=== PATIENT | female | born 1935 | race Caucasian/White ===

== ENCOUNTER 2019-02-12 08:34 | Day surgery (SDC) | payer MEDICARE ==
[2019-02-07 13:30] VITALS: BP 132/59
[2019-02-07 14:00] LABS: BASOPHILS % (AUTO) 0.5 % (0.0-5.0); EOSINOPHILS % (AUTO) 2.1 % (0.0-8.0); HEMATOCRIT 37.6 % (36-48); LYMPHOCYTES % (AUTO) 15.9 % (21.0-51.0); MEAN CORPUSCULAR HEMOGLOBIN 28.1 pg (27.0-33.0); MEAN CORPUSCULAR HGB CONC 33.3 g/dL (32.0-36.0); MEAN CORPUSCULAR VOLUME 84.4 fL (79-99); MONOCYTES % (AUTO) 6.6 % (3.0-13.0); NEUTROPHILS % (AUTO) 74.9 % (40.0-77.0); NUCLEATED RED BLOOD CELLS 0.1 % (0.0-0.19); PLATELET COUNT (AUTO) 176 K/uL (130-400); RED BLOOD CELL COUNT(AUTO) 4.45 MIL/uL (4.00-5.50); RED CELL DISTRIBUTION WIDTH 13.2 % (11.0-15.5); WHITE BLOOD COUNT (AUTO) 6.4 K/uL (4.8-10.8)
[2019-02-07 14:07] LABS: CREATININE 0.9 mg/dL (0.5-1.5); POTASSIUM 4.1 mmol/L (3.5-5.1)
[2019-02-07 14:10] LABS: PARTIAL THROMBOPLASTIN TIME 29.5 SEC (26.3-35.5); PROTHROMBIN TIME 10.5 SEC (9.6-11.6)
[2019-02-12] VITALS (11 sets, daily range): BP systolic 128–161; BP diastolic 61–90
[~2019-02-12] VITALS: Ht 167.6 cm; Wt 87.5 kg
[~2019-02-12 08:34] MED LIST: AEC81 PO; ATOR10 PO; BISO1TAB99 PO; FLUT16H NASAL; MULT-40 PO; NAPR220T57 PO; SERT100T12 PO; [UNRECOGNIZED DRUG - CODE] TP
[2019-02-12] MEDS ORDERED: SODIUM CHLORIDE 0.9% 1000ML 1,000 ML IV ONE (08:52)
[2019-02-12 11:33] LABS: APPEARANCE,URINE Cloudy (CLEAR); BILIRUBIN,URINE Negative (NEGATIVE); COLOR,URINE Yellow (YELLOW); GLUCOSE, URINE (UA) Negative (NEGATIVE); KETONES,URINE Negative (NEGATIVE); LEUKOCYTE ESTERASE ,URINE Large (NEGATIVE); NITRATE,URINE Negative (NEGATIVE); OCCULT BLOOD,URINE Negative (NEGATIVE); PH,URINE 6.5 (5.0-8.0); PROTEIN,URINE Negative (NEGATIVE); UROBILINOGEN,URINE 0.2 mg/dL (0.2-1.0)
[2019-02-12 12:05] LABS: RBC,URINE 0-1 /HPF (0-1)
[2019-02-12 12:10] LABS: BACTERIA,URINE Moderate /HPF (None Seen)
[2019-02-12] MEDS ORDERED: ACETAMINOPHEN 325 MG TAB ONE ×2 (13:23→15:13)
[2019-02-12] MEDS ORDERED: IOHEXOL 350 MG/ML 100ML INFUS..BTL IV ONE (15:51)
[2019-02-12] MEDS ORDERED: IOHEXOL-350 50ML VIAL IV ONE (15:51)
[2019-02-12] MEDS ORDERED: SODIUM BICARB 50MEQ 50ML VIAL ONE (15:51)
[2019-02-12] MEDS ORDERED: HEPARIN SODIUM 1000UNIT/ML 10ML VIAL ONE (15:51)
[2019-02-12] MEDS ORDERED: MEPERIDINE-PF 25 MG/ML SYG ONE (15:51)
[2019-02-12] MEDS ORDERED: MIDAZOLAM HCL 1 MG/ML 2ML VIAL ONE (15:51)
[2019-02-12] MEDS ORDERED: LIDOCAINE HCL 2% 20ML ONE (15:51)
[2019-02-12] MEDS ORDERED: NITROGLYCERIN 5 MG/ML 10 ML VIAL IV ONE (15:51)
[2019-02-12] MEDS ORDERED: SODIUM CHLORIDE 0.9% 1000ML 1,000 ML IV SCH (16:53)
[2019-02-12] MEDS ORDERED: GLUCAGON 1MG KIT 1 MG ML IM PRN (17:00)
[2019-02-12] MEDS ORDERED: ACETAMINOPHEN-CODEINE 300/30MG TAB PO PRN (17:00)
[2019-02-12] MEDS ORDERED: DEXTROSE 50%-WATER 50 ML DISP.SYRIN IV PRN (17:00)
[2019-02-12] MEDS ORDERED: INSULIN HUMULIN R 100 UNIT/ML 3ML SQ SCH (21:00)
== END 2019-02-12 21:53 | disposition home or self-care (01) ==
LOC: DAH 08:34
PROVIDERS: ATTEND Internal Medicine Cardiovascular Disease
DX: I25.10 Atherosclerotic heart disease of native coronary artery without angina pectoris (principal); I49.3 Ventricular premature depolarization; I10 Essential (primary) hypertension; E78.5 Hyperlipidemia, unspecified; Z88.0 Allergy status to penicillin; Z88.8 Allergy status to other drugs, medicaments and biological substances; Z91.040 Latex allergy status; Z79.82 Long term (current) use of aspirin; Z79.01 Long term (current) use of anticoagulants; Z79.899 Other long term (current) drug therapy
CPT/HCPCS: 36415; 71045; 80048; 81001; 82948 ×2; 85025; 85610; 85730; 93005; 93458; A4215; A4216; A4221; A4222; A4223 ×3; A4606; A4663; C1760; C1894; J1644; J2175; J2250; J3490 ×3; J7030; Q9965; Q9967 ×2; 99156; 99157

== ENCOUNTER 2019-09-12 07:32 | Day surgery (SDC) | payer MEDICARE ==
[~2019-09-12] VITALS: Ht 167.6 cm; Wt 84.2 kg
[2019-09-12 07:50] VITALS: BP 140/69
[2019-09-12 08:05] LABS: BASOPHILS % (AUTO) 1.1 % (0.0-5.0); EOSINOPHILS % (AUTO) 2.7 % (0.0-8.0); HEMATOCRIT 38.1 % (36-48); LYMPHOCYTES % (AUTO) 19.1 % (21.0-51.0); MEAN CORPUSCULAR HGB CONC 33.1 g/dL (32.0-36.0); MEAN CORPUSCULAR VOLUME 84.7 fL (79-99); MONOCYTES % (AUTO) 6.8 % (3.0-13.0); NEUTROPHILS % (AUTO) 69.8 % (40.0-77.0); PLATELET COUNT (AUTO) 181 K/uL (130-400); RED CELL DISTRIBUTION WIDTH 12.9 % (11.0-15.5); WHITE BLOOD COUNT (AUTO) 6.7 K/uL (4.8-10.8)
[2019-09-12 08:13] LABS: CREATININE 1.1 mg/dL (0.5-1.5); POTASSIUM 3.8 mmol/L (3.5-5.1)
[2019-09-12] MEDS ORDERED: SODIUM CHLORIDE 0.9% 1000ML 1,000 ML IV ONE (08:15)
[2019-09-12 08:20] LABS: INR 0.94 (0.85-1.15); PARTIAL THROMBOPLASTIN TIME 29.3 SEC (26.3-35.5); PROTHROMBIN TIME 10.2 SEC (9.6-11.6)
[2019-09-12] MEDS ORDERED: AEC81 PO (10:26)
[2019-09-12] MEDS ORDERED: VERA180T13 PO (10:26)
[2019-09-12] MEDS ORDERED: DRON400T2 PO (10:26)
[2019-09-12] MEDS ORDERED: TRAZ-185 PO (10:26)
[2019-09-12] MEDS ORDERED: HEPARIN SODIUM 1000UNIT/ML 10ML VIAL ONE (11:51)
[2019-09-12] MEDS ORDERED: LIDOCAINE HCL 2% 20ML ONE (11:51)
[2019-09-12] MEDS ORDERED: MIDAZOLAM HCL 1 MG/ML 2ML VIAL ONE (11:56)
[2019-09-12] MEDS ORDERED: MEPERIDINE-PF 25 MG/ML SYG ONE (11:57)
[2019-09-12 14:33] VITALS: BP 143/82
--- NOTE | 2019-09-12 14:33 | NUR ---
ASSESSMENT PT HERE FROM PROCEDURE. PROCEDURE NOT DONE DUE TO EQUIPMENT FAILURE. DR. WALLACE OFFICE WILL CALL PT TO RESCHEDULE. PT VERBALIZED UNDERSTANDING
--- NOTE | 2019-09-12 15:30 | NUR ---
DISCHARGE PT DISCHARGED TO HOME. DENIES ANY PAIN.
== END 2019-09-12 15:35 | disposition home or self-care (01) ==
LOC: CLH 07:32 → DAH 07:32 → CLH 15:35
PROVIDERS: ATTEND Internal Medicine Cardiovascular Disease
DX: I49.3 Ventricular premature depolarization (principal); Z53.8 Procedure and treatment not carried out for other reasons; I10 Essential (primary) hypertension; E78.5 Hyperlipidemia, unspecified; Z88.0 Allergy status to penicillin; Z91.040 Latex allergy status; Z79.01 Long term (current) use of anticoagulants; Z79.899 Other long term (current) drug therapy; Z88.8 Allergy status to other drugs, medicaments and biological substances; Z72.89 Other problems related to lifestyle; Z87.891 Personal history of nicotine dependence; F32.9 Major depressive disorder, single episode, unspecified; Z82.49 Family history of ischemic heart disease and other diseases of the circulatory system; Z83.3 Family history of diabetes mellitus
CPT/HCPCS: 36415; 80048; 82948; 85025; 85610; 85730; A4215; A4216; A4221; A4222; A4223 ×3; A4606; A4663; J1644 ×2; J2175; J2250; J3490; J7030

== ENCOUNTER 2020-01-09 06:05 | Observation (INO) | payer MEDICARE ==
[2020-01-07 12:09] LABS: BASOPHILS % (AUTO) 0.4 % (0.0-5.0); EOSINOPHILS % (AUTO) 2.2 % (0.0-8.0); HEMATOCRIT 38.7 % (36-48); LYMPHOCYTES % (AUTO) 18.5 % (21.0-51.0); MEAN CORPUSCULAR HEMOGLOBIN 28.2 pg (27.0-33.0); MEAN CORPUSCULAR HGB CONC 32.3 g/dL (32.0-36.0); MEAN CORPUSCULAR VOLUME 87.2 fL (79-99); MONOCYTES % (AUTO) 7.2 % (3.0-13.0); NEUTROPHILS % (AUTO) 71.4 % (40.0-77.0); PLATELET COUNT (AUTO) 184 K/uL (130-400); RED BLOOD CELL COUNT(AUTO) 4.44 MIL/uL (4.00-5.50); RED CELL DISTRIBUTION WIDTH 12.9 % (11.0-15.5); WHITE BLOOD COUNT (AUTO) 6.8 K/uL (4.8-10.8)
[2020-01-07 12:32] LABS: INR 0.97 (0.85-1.15); PARTIAL THROMBOPLASTIN TIME 28.6 SEC (26.3-35.5); PROTHROMBIN TIME 10.5 SEC (9.6-11.6)
[2020-01-07 12:36] LABS: POTASSIUM 4.1 mmol/L (3.5-5.1)
[2020-01-08 10:08] VITALS: BP 158/92
[~2020-01-09] VITALS: Ht 170.2 cm; Wt 90.7 kg
[2020-01-09] VITALS (12 sets, daily range): BP systolic 123–163; BP diastolic 58–87
[~2020-01-09 06:05] MED LIST changes: +DRON400T2 PO; -FLUT16H NASAL; -MULT-40 PO; -NAPR220T57 PO; +TRAZ-185 PO; -[UNRECOGNIZED DRUG - CODE] TP
[2020-01-09] MEDS ORDERED: SODIUM CHLORIDE 0.9% 1000ML 1,000 ML IV ONE (06:07)
--- NOTE | 2020-01-09 07:35 | NUR ---
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 no distress noted.
[2020-01-09] MEDS ORDERED: HEPARIN SODIUM 1000UNIT/ML 10ML VIAL ONE (07:52)
[2020-01-09] MEDS ORDERED: LIDOCAINE HCL 2% 20ML ONE (07:52)
[2020-01-09] MEDS ORDERED: MEPERIDINE-PF 25 MG/ML SYG ONE ×2 (08:04→09:38)
[2020-01-09] MEDS ORDERED: MIDAZOLAM HCL 1 MG/ML 2ML VIAL ONE ×2 (08:04→09:38)
[2020-01-09] MEDS ORDERED: IOHEXOL-350 50ML VIAL IV ONE (09:23)
[2020-01-09] MEDS ORDERED: ISOPROTERENOL HCL 0.2 MG/ML AMP/VIAL/BAG ONE (10:49)
[2020-01-09] MEDS ORDERED: PROTAMINE SULFATE 10 MG/ML 25ML VIAL IV ONE (11:14)
[2020-01-09] MEDS ORDERED: TRAZODONE HCL 50 MG TAB PO PRN (11:45)
[2020-01-09] MEDS ORDERED: ACETAMINOPHEN-CODEINE 300/30MG TAB PO PRN (11:45)
[2020-01-09] MEDS: SERTRALINE HCL 50 MG TABLET PO SCH (11:49)
--- NOTE | 2020-01-09 12:25 | NUR ---
POST RECEIVED PT BACK FROM [facility] S/P PVC ABLATION , ANGIOSEAL CLOSURE DRESSING TO LEFT GROIN. RIGHT GROIN WITH D STAT . PT AWAKE AND ALERT IN BED, NO DISTRESS NOTED, PT DENIED ANY PAIN OR DISCOMFORTS . PLAN OF CARE DISCUSS WITH PATIENT . CALL LIGHT WITHIN REACH . PT PENDING ADMISSION BED
[2020-01-09] MEDS: ACETAMINOPHEN-CODEINE 300/30MG TAB PO PRN (15:22)
--- NOTE | 2020-01-09 15:37 | NUR ---
REPORT REPORT GIVEN TO IVANNA CARABALLO , PT BEING TRANSFERED TO ROOM 411.
--- NOTE | 2020-01-09 15:55 | NUR ---
ADMISSION PT RECEIVED FROM DAY PATIENT; S/P CARDIAC ABLATION. PT AWAKE, ALERT, AND ORIENTED. ORIENTED PT TO ROOM AND CALL LIGHT. DENIES CHEST PAIN, DENIES SOB OR LABORED RESPIRATIONS. BILATERAL GROIN SITES INTACT, NO DRAINAGE OR HEMATOMA, PEDAL PULSES PALPABLE BILATERALLY. PT REMINDED OF STRICT BEDREST UNTIL 1800. PT RSR 60'S. CALL LIGHT WITHIN REACH.
--- NOTE | 2020-01-09 16:15 | NUR ---
POST EP AWAKE AND ORIENTED, DENIES CHEST PAIN OR DISCOMFORT, TELEMETRY MONITORING. BILATERAL GROIN INTACT, NO DRAINAGE, NO HEMATOMA, BILATERAL PEDAL PULSES PALPABLE. CONTINUES ON BEDREST. CALL LIGHT WITHIN REACH.
--- NOTE | 2020-01-09 16:45 | NUR ---
PT AWAKE AND ALERT, DENIES CHEST PAIN, BILATERAL GROIN INTACT, NO DRAINAGE OR HEMATOMA, BILATERAL PEDAL PULSES PALPABLE. DR AHN AWARE OF PT ROOM #.
--- NOTE | 2020-01-09 17:30 | NUR ---
GROIN AWAKE AND ORIENTED , DENIES CHEST PAIN, TELEMETRY MONITORING. BILATERAL GROIN INTACT, NO DRAINAGE OR HEMATOMA, PEDAL PULSES PALPABLE. CALL LIGHT WITHIN REACH
--- NOTE | 2020-01-09 18:30 | NUR ---
BEDREST PT AWAKE AND ORIENTED, DENIES CHEST PAIN. BILATERAL GROIN INTACT, NO DRAINAGE OR HEMATOMA. OOB WITH ASSISTANCE, TOLERATED WELL.
--- NOTE | 2020-01-09 19:00 | NUR ---
AWAKE AND ORIENTED, DENIES DISCOMFORT, NO BLEEDING OR HEMATOMA TO BILATERAL GROIN. TELEMETRY MONITORING. CALL LIGHT WITHIN REACH.
[2020-01-09] MEDS ORDERED: ATORVASTATIN CALCIUM 10 MG TABLET PO SCH (21:00)
[2020-01-10 03:00] VITALS: BP 163/71
[2020-01-10] MEDS: ACETAMINOPHEN-CODEINE 300/30MG TAB PO PRN (03:26)
[2020-01-10 08:00] VITALS: BP 135/51
[2020-01-10] MEDS: SERTRALINE HCL 50 MG TABLET PO SCH (08:52)
[2020-01-10] MEDS ORDERED: ASPIRIN 81 MG EC TAB PO SCH (09:00)
[2020-01-10] MEDS ORDERED: HCTZ PO SCH (09:00)
[2020-01-10] MEDS ORDERED: BISOPROLOL FUMARATE PO SCH (09:00)
[2020-01-10] MEDS ORDERED: PHARMACY COMMUNICATION MISC SCH (09:30)
[2020-01-10] MEDS ORDERED: HYDROCHLOROTHIAZIDE 25 MG TABLET PO SCH (10:47)
[2020-01-10] MEDS ORDERED: METOPROLOL SUCCINATE 50 MG TAB.SR.24H PO SCH (10:47)
--- NOTE | 2020-01-10 11:20 | NUR ---
BROWNING LETTER PATIENT GIVEN BROWNING LETTER, VERBALIZED UNDERSTANDING. FORMS SIGNED, COPY GIVEN TO PATIENT.
[2020-01-10 11:44] VITALS: BP 149/59
--- NOTE | 2020-01-10 14:16 | NUR ---
DISCHARGE HOME PT WAS DISCHARGED HOME AT 1400. PT VERBALIZES UNDERSTANDING OF DISCHARGE INSTRUCTIONS.
== END 2020-01-10 14:00 | disposition home or self-care (01) ==
LOC: DAH 06:05 → DAHIP 06:06 → DAH 06:06 → 4BH 15:58
PROVIDERS: ADMIT Internal Medicine; ATTEND Internal Medicine
DX: I49.3 Ventricular premature depolarization (principal); I10 Essential (primary) hypertension; E78.5 Hyperlipidemia, unspecified; Z87.891 Personal history of nicotine dependence; Z79.82 Long term (current) use of aspirin; Z79.899 Other long term (current) drug therapy; Z88.0 Allergy status to penicillin; Z91.040 Latex allergy status; Z88.8 Allergy status to other drugs, medicaments and biological substances
CPT/HCPCS: 36415; 80048; 82948 ×2; 85025; 85610; 85730; 93005; 93621; 93623; 93654; 96360; 96361; A4215; A4216; A4221; A4222; A4223 ×3; A4606; A4649 ×2; A4663; C1730; C1732; C1760; C1894 ×4; G0378 ×19; J1644 ×3; J2175 ×2; J2250 ×2; J2720; J3490 ×2; J7030; Q9967; 99156; 99157